=== PATIENT | female | born 1950 | race Caucasian/White ===

== ENCOUNTER 2018-02-20 10:39 | Emergency (ER) | payer OTHER, MEDICARE ==
--- NOTE | 2018-02-20 12:56 | EDPHY ---
H & P Stated Complaint: trip and fall running the [employer] Time Seen by Provider: 02/20/18 11:50 HPI/ROS: CHIEF COMPLAINT: Right-sided chest pain after a fall HISTORY OF PRESENT ILLNESS: 67-year-old female presents after a fall with right -sided chest pain. She was walking the [employer] when she tripped and fell forward. She landed on her right side with her elbow against her chest wall. She has right lateral chest pain, that increases with deep inspiration. The pain has gradually subsided since the injury and is now mild. She did not strike her head. REVIEW OF SYSTEMS: complete 10 point ROS negative except as noted in the HPI Source: Patient Exam Limitations: No limitations - Personal History Current Tetanus/Diphtheria Vaccine: Unsure Current Tetanus Diphtheria and Acellular Pertussis (TDAP): Unsure - Medical/Surgical History Hx Asthma: No Hx Chronic Respiratory Disease: No Hx Diabetes: No Hx Cardiac Disease: Yes Hx Renal Disease: No Hx Cirrhosis: No Hx Alcoholism: No Hx HIV/AIDS: No Hx Splenectomy or Spleen Trauma: No Other PMH: HTN, High cholesterol - Social History Smoking Status: Never smoked Alcohol Use: Sober - Physical Exam Exam: General Appearance: Alert, pleasant Head: Atraumatic Eyes: No conjunctival erythema, PERRLA, EOMI ENT, Mouth: no bony tenderness Neck: Nontender, full range of motion without pain Respiratory: Normal inspection, mild right sided chest wall tenderness, without point tenderness, lungs clear bilaterally Cardiovascular: Regular rate and rhythm Abdomen: Abdomen is soft and nontender Skin: No lacerations, no abrasions Back: Right periscapular tenderness, No midline T/L/S tenderness Extremities: Pelvis is stable and nontender; no extremity tenderness or deformity Neurological: A&Ox3, normal motor function, normal sensory exam, cranial nerves intact Psychiatric: Mood and affect normal Constitutional: Initial Vital Signs Temperature (C) 36.9 C 02/20/18 10:44 Heart Rate 85 02/20/18 10:44 Respiratory Rate 16 02/20/18 10:44 Blood Pressure 143/92 H 02/20/18 10:44 O2 Sat (%) 99 02/20/18 10:44 O2 Delivery Mode Room Air Allergies/Adverse Reactions: Penicillins Allergy (Verified 02/20/18 10:50) Sulfa (Sulfonamide Antibiotics) Allergy (Verified 02/20/18 10:49) Home Medications: Medication Instructions Recorded FLUoxetine [Prozac 10 MG (*)] 10 mg PO DAILY 02/20/18 Lisinopril [Prinivil] 10 mg PO 02/20/18 Lovastatin 20 mg PO 02/20/18 Medical Decision Making - Diagnostics Imaging Results: Chest X-Ray 02/20/18 11:14 Impression: 1. Negative for displaced rib fracture or pneumothorax. 2. Query airways disease. Imaging: I viewed and interpreted images myself ED Course/Re-evaluation: This patient presents after a fall with right-sided chest pain. Chest x-ray is unremarkable and I do not suspect a rib fracture in this patient. She has musculoskeletal pain, without evidence of other injuries such as fracture or hemorrhage. I feel that she is safe and stable for discharge home. Differential Diagnosis: includes though not limited to rib/other fx, PTX, hemorrhage Departure - Departure Disposition: Home, Routine, Self-Care Clinical Impression: Chest wall contusion Condition: Good Instructions: Contusion in Adults (ED), Chest Wall Pain (ED) Additional Instructions: Ibuprofen 600 mg 3 times daily while the pain persists. Referrals: Sheron Winter MD [Medical Doctor] - Follow Up Only If Needed
[2018-02-20 13:07] VITALS: BP 138/78
== END 2018-02-20 13:07 | disposition home or self-care (01) ==
DX: S20.219A Contusion of unspecified front wall of thorax, initial encounter (principal); I10 Essential (primary) hypertension; W01.0XXA Fall on same level from slipping, tripping and stumbling without subsequent striking against object, initial encounter; Y99.8 Other external cause status; Y93.01 Activity, walking, marching and hiking